=== PATIENT | male | born 1980 | race African-American/Black ===

== ENCOUNTER 2019-04-21 03:24 | Emergency (ER) | payer OTHER ==
[~2019-04-21] VITALS: Ht 193 cm; Wt 75.5 kg
[2019-04-21 03:27] VITALS: BP 124/78
--- NOTE | 2019-04-21 03:55 | NUR ---
PT. REPORTS BUGS ARE CRAWLING ALL OVER HIM. NO BUGS NOTED IN TRIAGE OR BY THIS RN. PT. NOTED TO HAVE MULTIPLE SUPERFICIAL SCRATCHES TO BILAT ARMS AND BACK, REPORTS HAS BEEN SCRATCHING X 2 DAYS. PT. REPORTS LAST METH USE A COUPLE HOURS AGO. RAPID MOVEMENTS NOTED. DR. MERA IN TO EVAL PT. AND DISCUSS POC.
--- NOTE | 2019-04-21 04:10 | NUR ---
THIS RN IN TO D/C PT. PT. DID PICK 2 BUGS OFF HIMSELF AT THIS THAT TIME. DR. MERA UPDATED. PT. NOW TO D/C WITH RX.
== END 2019-04-21 04:23 | disposition home or self-care (01) ==
LOC: ED 04:00
DX: F15.180 Other stimulant abuse with stimulant-induced anxiety disorder (principal); Z72.89 Other problems related to lifestyle; Z72.9 Problem related to lifestyle, unspecified
CPT/HCPCS: 99282

== ENCOUNTER 2020-01-12 16:58 | Emergency (ER) | payer MEDICARE, MEDICAID ==
[~2020-01-12] VITALS: Ht 193 cm; Wt 72.2 kg
[2020-01-12 17:00] VITALS: BP 163/69
== END 2020-01-12 19:08 | disposition home or self-care (01) ==
LOC: ED 18:30
DX: S63.511A Sprain of carpal joint of right wrist, initial encounter (principal); Z21 Asymptomatic human immunodeficiency virus [HIV] infection status; F17.200 Nicotine dependence, unspecified, uncomplicated; Y04.0XXA Assault by unarmed brawl or fight, initial encounter; Y93.89 Activity, other specified; Y92.410 Unspecified street and highway as the place of occurrence of the external cause; Y99.8 Other external cause status
CPT/HCPCS: 99283